=== PATIENT | female | born 1985 ===

== ENCOUNTER 2021-12-22 11:26 | Emergency (ER) | payer MEDICAID ==
[~2021-12-22] VITALS: Ht 167.6 cm; Wt 56.8 kg
[2021-12-22 11:27] VITALS: BP 160/64
== END 2021-12-22 12:11 | disposition left against medical advice (07) ==
LOC: ER 11:26
DX: F29 Unspecified psychosis not due to a substance or known physiological condition (principal); Z53.21 Procedure and treatment not carried out due to patient leaving prior to being seen by health care provider

== ENCOUNTER 2021-12-22 12:47 | Emergency (ER) | payer MEDICAID | END 2021-12-22 15:37 | disposition left against medical advice (07) | LOC: ER 12:48 | DX: F29 Unspecified psychosis not due to a substance or known physiological condition (principal); Z53.21 Procedure and treatment not carried out due to patient leaving prior to being seen by health care provider ==